=== PATIENT | female | born 1945 | race Caucasian/White ===

== ENCOUNTER → 2016-06-16 | Day surgery (SDC) | payer MEDICARE, BC ==
[~2016-06-16] VITALS: Ht 175.3 cm; Wt 49.9 kg
[~2016-06-16] MED LIST: ALPRAZOLAM0.5 MG PO; COUMADIN 1MG TAB1 MG PO; IMDUR ER TAB 3030 MG PO; LANOXIN TAB0.125 MG PO; LOSARTAN POTASS50 MG PO; PLAVIX 75 MG TA75 MG PO; PROVENTIL HFA 61 INH INH; SIMVASTATIN20 MG PO; SOTALOL120 MG PO; TIROSINT100 MCG PO; TORSEMIDE20 MG PO; TRAMADOL HCL50 MG PO; VENTOLIN/PROVE0.5 ML INH; ZYLOPRIM 100 M100 MG PO
== END | disposition home or self-care (01) ==
LOC: OR 06:48
PROVIDERS: Internal Medicine Gastroenterology
PROC: 0DB68ZX Excision of Stomach, Via Natural or Artificial Opening Endoscopic, Diagnostic (ICD-10-PCS; principal; 2016-06-16 08:45)
PROC: 0DBH8ZZ Excision of Cecum, Via Natural or Artificial Opening Endoscopic (ICD-10-PCS; 2016-06-16 08:45)
DX: D12.0 Benign neoplasm of cecum (principal); K64.0 First degree hemorrhoids; K29.70 Gastritis, unspecified, without bleeding; K44.9 Diaphragmatic hernia without obstruction or gangrene; I11.0 Hypertensive heart disease with heart failure; I50.9 Heart failure, unspecified; I25.2 Old myocardial infarction; I25.10 Atherosclerotic heart disease of native coronary artery without angina pectoris; J40 Bronchitis, not specified as acute or chronic; G47.30 Sleep apnea, unspecified; M19.90 Unspecified osteoarthritis, unspecified site; M54.9 Dorsalgia, unspecified; Z88.0 Allergy status to penicillin; Z90.710 Acquired absence of both cervix and uterus; Z90.49 Acquired absence of other specified parts of digestive tract; Z95.810 Presence of automatic (implantable) cardiac defibrillator; Z98.890 Other specified postprocedural states
CPT/HCPCS: J2250; J7030

== ENCOUNTER → 2020-06-30 | Outpatient (CLI) | payer MEDICARE, BC ==
[~2020-06-30] MED LIST changes: +ALBUTEROL2.5 MG/3 M INH; +AMIODARONE HCL200 MG PO; +ASPIRIN81 MG PO; +COLACE 100MG C100 MG PO; +COUMADIN2 MG PO; +COZAAR50 MG PO; +DIGOX125 MCG PO; +DOXYCYCLINE HY100 MG PO; +ENTRESTO 24 MG1 EACH PO; +ESCITALOPRAM OX10 MG PO; +FLONASE 0.05% N16 GM; +JANTOVEN2 MG PO; +JANTOVEN4 MG PO; -LANOXIN TAB0.125 MG PO; +LEVAQUIN500 MG PO; +LEVAQUIN750 MG PO; +LOPRESSOR 25 MG25 MG PO; +MEDROL DOSEPAK 24 MG PO; +MEGA BIOTIN10000 MCG PO; +NAC600 MG PO; +POLYETHYLENE GL17 GM PO; +PREDNISONE10 MG PO; +PREDNISONE20 MG PO; +SYMBICORT 16010.2 GM INH; +SYNTHROID100 MCG PO; -TIROSINT100 MCG PO; +TYLENOL W/CODEIN1 E1 PO; -VENTOLIN/PROVE0.5 ML INH; +VIBRAMYCIN100 MG PO; +XANAX1 MG PO
== END ==
LOC: KOH-I 08:04
DX: R14.0 Abdominal distension (gaseous) (principal); R10.9 Unspecified abdominal pain; R60.1 Generalized edema
CPT/HCPCS: 74176

== ENCOUNTER → 2020-07-08 | Outpatient (CLI) | payer MEDICARE, BC ==
[2020-07-08 12:14] LABS: HEMOGLOBIN 12.5 gm/dl (12.3-15.3); RED BLOOD COUNT 3.83 M/UL (4.00-5.10); WHITE BLOOD COUNT 4.4 K/UL (4.5-11.0)
[2020-07-09 11:11] LABS: CREATININE, URINE 13.6 mg/dL (Not Estab.)
== END ==
LOC: LAB 11:11
PROVIDERS: Family Medicine
DX: E11.9 Type 2 diabetes mellitus without complications (principal); E03.9 Hypothyroidism, unspecified; E78.2 Mixed hyperlipidemia; M10.9 Gout, unspecified; D64.9 Anemia, unspecified
CPT/HCPCS: 36415; 80053; 80061; 82043; 82570; 82728; 83540; 83550; 84439; 84443; 84550; 85027; 85045

== ENCOUNTER → 2020-07-20 | Outpatient (CLI) | payer MEDICARE, BC ==
[2020-07-21 09:14] LABS: HBSAG SCREEN Negative (Negative); HEP A AB, IGM Negative (Negative); HEP B CORE AB, IGM Negative (Negative); HEP C VIRUS AB 0.1 (0.0-0.9)
[2020-07-21 11:14] LABS: ALPHA-1-ANTITRYPSIN, SERUM 136 mg/dL (101-187)
[2020-07-21 13:14] LABS: MITOCHONDRIAL (M2) ANTIBODY 35.7 Units (0.0-20.0); NUCLEAR DOT PATTERN >1:1280 (.)
== END ==
LOC: LAB 13:09
PROVIDERS: Internal Medicine Gastroenterology
DX: R94.5 Abnormal results of liver function studies (principal); K74.60 Unspecified cirrhosis of liver
CPT/HCPCS: 36415; 80048; 80074; 80076; 82103; 82728; 83540; 83550; 86038

== ENCOUNTER → 2020-07-24 | Outpatient (CLI) | payer MEDICARE, BC | LOC: OPSV 10:00 | DX: K74.60 Unspecified cirrhosis of liver (principal); R18.8 Other ascites; Z79.01 Long term (current) use of anticoagulants; Z79.82 Long term (current) use of aspirin; Z79.899 Other long term (current) drug therapy; Z20.822 Contact with and (suspected) exposure to COVID-19 | CPT/HCPCS: G0463; U0003 ==

== ENCOUNTER → 2020-07-28 | Day surgery (SDC) | payer MEDICARE, BC | END | disposition home or self-care (01) | LOC: OR 06:37 | DX: K31.819 Angiodysplasia of stomach and duodenum without bleeding (principal); K44.9 Diaphragmatic hernia without obstruction or gangrene; K22.4 Dyskinesia of esophagus; K74.60 Unspecified cirrhosis of liver; R18.8 Other ascites; I50.22 Chronic systolic (congestive) heart failure; I25.10 Atherosclerotic heart disease of native coronary artery without angina pectoris; I48.91 Unspecified atrial fibrillation; K21.9 Gastro-esophageal reflux disease without esophagitis; E03.9 Hypothyroidism, unspecified; F17.210 Nicotine dependence, cigarettes, uncomplicated; Z95.1 Presence of aortocoronary bypass graft; Z88.0 Allergy status to penicillin; Z88.1 Allergy status to other antibiotic agents; Z79.82 Long term (current) use of aspirin; Z79.01 Long term (current) use of anticoagulants; Z79.899 Other long term (current) drug therapy | CPT/HCPCS: J2001; J2704; J7030 ==

== ENCOUNTER → 2020-08-10 | Outpatient (CLI) | payer MEDICARE, BC ==
[2020-08-10 10:44] LABS: HEMOGLOBIN 12.8 gm/dl (12.3-15.3); RED BLOOD COUNT 3.85 M/UL (4.00-5.10); WHITE BLOOD COUNT 3.7 K/UL (4.5-11.0)
[2020-08-11 11:14] LABS: CREATININE, URINE 13.5 mg/dL (Not Estab.); HBSAG SCREEN Negative (Negative); HEP A AB, IGM Negative (Negative); HEP B CORE AB, IGM Negative (Negative); HEP C VIRUS AB <0.1 (0.0-0.9)
== END ==
LOC: LAB 09:15
PROVIDERS: Family Medicine
DX: E87.6 Hypokalemia (principal); K74.60 Unspecified cirrhosis of liver; E11.9 Type 2 diabetes mellitus without complications; E03.9 Hypothyroidism, unspecified; E78.2 Mixed hyperlipidemia; M10.9 Gout, unspecified; D64.9 Anemia, unspecified
CPT/HCPCS: 36415; 80053; 80061; 80074; 82043; 82570; 82728; 83540; 83550; 84439; 84443; 84550; 85027; 85045

== ENCOUNTER → 2020-09-01 | Outpatient (CLI) | payer MEDICARE, BC ==
[2020-09-01 09:52] LABS: HEMOGLOBIN 12.9 gm/dl (12.3-15.3); RED BLOOD COUNT 3.89 M/UL (4.00-5.10); WHITE BLOOD COUNT 5.3 K/UL (4.5-11.0)
== END ==
LOC: LAB 08:54
PROVIDERS: Internal Medicine Nephrology
DX: N18.32 Chronic kidney disease, stage 3b (principal); E87.3 Alkalosis; E87.6 Hypokalemia
CPT/HCPCS: 36415; 80053; 82043; 82570; 82803; 83735; 84156; 85027

== ENCOUNTER → 2020-09-30 | Outpatient (CLI) | payer MEDICARE, BC | LOC: LAB 10:47 | PROVIDERS: Internal Medicine Nephrology | DX: N18.32 Chronic kidney disease, stage 3b (principal); R06.02 Shortness of breath | CPT/HCPCS: 36415; 80053; 83880 ==

== ENCOUNTER → 2020-10-15 | Outpatient (CLI) | payer MEDICARE, BC ==
[2020-10-16 07:11] LABS: IMMUNOGLOBULIN G, QN, SERUM 1772 mg/dL (586-1602)
[2020-10-16 13:11] LABS: LIVER-KIDNEY MICROSOMAL AB <1.0 Units (0.0-20.0)
[2020-10-16 16:12] LABS: ACTIN (SMOOTH MUSCLE) ANTIBODY 18 Units (0-19)
== END ==
LOC: LAB 12:38
PROVIDERS: Internal Medicine Gastroenterology
DX: R74.8 Abnormal levels of other serum enzymes (principal)
CPT/HCPCS: 36415; 82784; 83516; 86376

== ENCOUNTER → 2020-10-19 | Outpatient (CLI) | payer MEDICARE, BC | LOC: LAB 10:07 | PROVIDERS: Internal Medicine Nephrology | DX: N18.32 Chronic kidney disease, stage 3b (principal) | CPT/HCPCS: 36415; 80053 ==

== ENCOUNTER → 2020-10-19 | Outpatient (CLI) | payer MEDICARE, BC | LOC: HEART 5 09:00 | DX: R06.02 Shortness of breath (principal); Z79.899 Other long term (current) drug therapy; F17.210 Nicotine dependence, cigarettes, uncomplicated; R94.2 Abnormal results of pulmonary function studies | CPT/HCPCS: 36415; 80053; 94060; 94729 ==

== ENCOUNTER → 2020-10-30 | Outpatient (CLI) | payer MEDICARE, BC | LOC: LAB 10:24 | PROVIDERS: Internal Medicine Nephrology | DX: N18.32 Chronic kidney disease, stage 3b (principal) | CPT/HCPCS: 36415; 80048 ==

== ENCOUNTER → 2020-12-07 | Outpatient (CLI) | payer MEDICARE, BC | LOC: LAB 09:02 | PROVIDERS: Internal Medicine Nephrology | DX: N18.32 Chronic kidney disease, stage 3b (principal) | CPT/HCPCS: 36415; 80048 ==

== ENCOUNTER → 2020-12-11 | Outpatient (CLI) | payer MEDICARE, BC | LOC: KOH-I 10:00 | DX: F17.210 Nicotine dependence, cigarettes, uncomplicated (principal) | CPT/HCPCS: 71271 ==

== ENCOUNTER → 2020-12-21 | Outpatient (CLI) | payer MEDICARE, BC | LOC: LAB 09:05 | DX: E03.9 Hypothyroidism, unspecified (principal) | CPT/HCPCS: 36415; 84439; 84443 ==

== ENCOUNTER → 2020-12-28 | Outpatient (CLI) | payer MEDICARE, BC | LOC: LAB 08:21 | PROVIDERS: Internal Medicine Nephrology | DX: N18.32 Chronic kidney disease, stage 3b (principal) | CPT/HCPCS: 36415; 80048 ==

== ENCOUNTER → 2021-01-07 | Outpatient (CLI) | payer MEDICARE, BC | LOC: EXRD 08:54 | DX: K74.60 Unspecified cirrhosis of liver (principal) | CPT/HCPCS: 76705 ==

== ENCOUNTER → 2021-01-12 | Outpatient (CLI) | payer MEDICARE, BC | LOC: LAB 09:52 | PROVIDERS: Family Medicine | DX: M10.9 Gout, unspecified (principal); I12.9 Hypertensive chronic kidney disease with stage 1 through stage 4 chronic kidney disease, or unspecified chronic kidney disease; N18.32 Chronic kidney disease, stage 3b; E03.9 Hypothyroidism, unspecified | CPT/HCPCS: 36415; 80053; 83735; 84439; 84443; 84550 ==

== ENCOUNTER → 2021-02-03 | Outpatient (CLI) | payer MEDICARE, BC | LOC: OPSV 10:00 | DX: R18.8 Other ascites (principal); K74.60 Unspecified cirrhosis of liver | CPT/HCPCS: G0463 ==

== ENCOUNTER → 2021-02-22 | Outpatient (CLI) | payer MEDICARE, BC | LOC: LAB 13:21 | PROVIDERS: Internal Medicine Nephrology | DX: N18.32 Chronic kidney disease, stage 3b (principal) | CPT/HCPCS: 36415; 80053 ==

== ENCOUNTER → 2021-03-09 | Outpatient (CLI) | payer MEDICARE, BC | LOC: EXRD 11:19 | DX: Z13.820 Encounter for screening for osteoporosis (principal); M81.0 Age-related osteoporosis without current pathological fracture | CPT/HCPCS: 77080 ==

== ENCOUNTER → 2021-03-16 | Outpatient (CLI) | payer MEDICARE, BC ==
[2021-03-16 12:33] LABS: HEMOGLOBIN 14.3 gm/dl (12.3-15.3); RED BLOOD COUNT 4.27 M/UL (4.00-5.10)
[2021-03-17 09:13] LABS: CREATININE, URINE 46.6 mg/dL (Not Estab.)
== END ==
LOC: LAB 11:06
PROVIDERS: Family Medicine
DX: E11.9 Type 2 diabetes mellitus without complications (principal); E03.9 Hypothyroidism, unspecified; I10 Essential (primary) hypertension; E78.2 Mixed hyperlipidemia; M10.9 Gout, unspecified
CPT/HCPCS: 36415; 80053; 80061; 82043; 82570; 83036; 83735; 84439; 84443; 84550; 85027

== ENCOUNTER → 2021-04-12 | Outpatient (CLI) | payer MEDICARE, BC | LOC: LAB 10:40 | PROVIDERS: Internal Medicine Nephrology | DX: N18.32 Chronic kidney disease, stage 3b (principal) | CPT/HCPCS: 36415; 80053 ==

== ENCOUNTER → 2021-05-13 | Outpatient (CLI) | payer MEDICARE, BC | LOC: LAB 07:58 | PROVIDERS: Internal Medicine Nephrology | DX: I50.22 Chronic systolic (congestive) heart failure (principal) | CPT/HCPCS: 36415; 80048 ==

== ENCOUNTER → 2021-05-25 | Outpatient (CLI) | payer MEDICARE, BC ==
[~2021-05-25] VITALS: Ht 152.4 cm; Wt 46.3 kg
== END ==
LOC: OPSV 14:53
DX: M81.0 Age-related osteoporosis without current pathological fracture (principal)
CPT/HCPCS: 96372

== ENCOUNTER 2021-07-24 16:33 | Inpatient (IN) | payer MEDICARE, BC ==
[~2021-07-24] VITALS: Ht 152.4 cm; Wt 47.2 kg
[2021-07-24 17:33] LABS: HEMOGLOBIN 13.5 gm/dl (12.3-15.3); RED BLOOD COUNT 4.04 M/UL (4.00-5.10); WHITE BLOOD COUNT 5.6 K/UL (4.5-11.0)
[2021-07-24] MEDS ORDERED: IMODIUM CAP 2 MG2 MG PO (18:03)
[2021-07-24] MEDS ORDERED: ZOFRAN ODT 4 MG4 MG SL (18:03)
[2021-07-24] MEDS ORDERED: LEVOTHYROXINE75 MC1 PO (21:22)
[2021-07-24] MEDS ORDERED: PACERONE200 MG PO (21:24)
[2021-07-24] MEDS ORDERED: FOSAMAX70 MG PO (21:25)
[2021-07-24] MEDS ORDERED: ZESTRIL2.5 MG PO (21:27)
[2021-07-24] MEDS ORDERED: ARIMIDEX 1 MG TA1 MG PO (21:28)
[2021-07-24] MEDS ORDERED: DEMADEX 20 MG T20 MG PO (21:29)
[2021-07-25 02:23] LABS: HEMOGLOBIN 11.8 gm/dl (12.3-15.3); WHITE BLOOD COUNT 6.1 K/UL (4.5-11.0)
[2021-07-25 02:37] LABS: RED BLOOD COUNT 3.63 M/UL (4.00-5.10)
--- NOTE | 2021-07-25 13:29 | NUR ---
DR. CARDENAS NOTIFIED OF PATIENTS CRITICAL PT RESULT. NO NEW ORDERS NOTED.
[2021-07-25] MEDS ORDERED: ANASTROZOLE1 MG PO (14:12)
[2021-07-25] MEDS ORDERED: ALLOPURINOL100 MG PO (14:12)
[2021-07-25] MEDS ORDERED: LEVOFLOXACIN500 MG PO (18:07)
[2021-07-25] MEDS ORDERED: METRONIDAZOLE500 MG PO (18:07)
[2021-07-25] MEDS ORDERED: IPRAT-ALBUT 0.5-3 ML NEB (18:07)
== END 2021-07-25 19:26 | disposition home or self-care (01) | DRG 683 ==
LOC: ER1 16:33 → CDU 18:22 → M/S 18:22
PROVIDERS: Emergency Medicine; ADMIT Internal Medicine
DX: N17.9 Acute kidney failure, unspecified (principal); E46 Unspecified protein-calorie malnutrition; E87.1 Hypo-osmolality and hyponatremia; A08.4 Viral intestinal infection, unspecified; E86.0 Dehydration; J44.9 Chronic obstructive pulmonary disease, unspecified; I25.10 Atherosclerotic heart disease of native coronary artery without angina pectoris; E11.22 Type 2 diabetes mellitus with diabetic chronic kidney disease; I25.5 Ischemic cardiomyopathy; I12.9 Hypertensive chronic kidney disease with stage 1 through stage 4 chronic kidney disease, or unspecified chronic kidney disease; R19.7 Diarrhea, unspecified; F17.200 Nicotine dependence, unspecified, uncomplicated; K74.60 Unspecified cirrhosis of liver; E03.9 Hypothyroidism, unspecified; R79.1 Abnormal coagulation profile; M40.209 Unspecified kyphosis, site unspecified; N18.9 Chronic kidney disease, unspecified; Z20.822 Contact with and (suspected) exposure to COVID-19; E87.6 Hypokalemia; Z83.3 Family history of diabetes mellitus; Z82.49 Family history of ischemic heart disease and other diseases of the circulatory system; Z79.899 Other long term (current) drug therapy; I25.2 Old myocardial infarction; Z90.710 Acquired absence of both cervix and uterus; Z98.41 Cataract extraction status, right eye; Z98.42 Cataract extraction status, left eye; Z98.890 Other specified postprocedural states; Z95.810 Presence of automatic (implantable) cardiac defibrillator; Z95.0 Presence of cardiac pacemaker; Z92.29 Personal history of other drug therapy; Z92.21 Personal history of antineoplastic chemotherapy; Z88.0 Allergy status to penicillin; Z88.8 Allergy status to other drugs, medicaments and biological substances; Z71.6 Tobacco abuse counseling; Z68.20 Body mass index [BMI] 20.0-20.9, adult; Z88.1 Allergy status to other antibiotic agents
CPT/HCPCS: 0240U; 36415; 71045; 80053; 82962; 83036; 83605; 83631; 83690; 83735; 84100; 84132; 85025; 85610; 86140; 87045; 87046; 87177; 87209; 87449; 94664; 94760; 96374; 99285; C9113; G0378; J1956; J2405; J3480; J7030

== ENCOUNTER → 2021-09-24 | Outpatient (CLI) | payer MEDICARE, BC ==
[~2021-09-24] MED LIST changes: +ALLOPURINOL100 MG PO; +ANASTROZOLE1 MG PO; +ARIMIDEX 1 MG TA1 MG PO; +DEMADEX 20 MG T20 MG PO; +FOSAMAX70 MG PO; +IMODIUM CAP 2 MG2 MG PO; +IPRAT-ALBUT 0.5-3 ML NEB; +LEVOFLOXACIN500 MG PO; +LEVOTHYROXINE75 MC1 PO; +METRONIDAZOLE500 MG PO; +PACERONE200 MG PO; +ZESTRIL2.5 MG PO; +ZOFRAN ODT 4 MG4 MG SL
== END ==
LOC: US 09:30
DX: K74.60 Unspecified cirrhosis of liver (principal)
CPT/HCPCS: 76705

== ENCOUNTER → 2021-11-01 | Outpatient (CLI) | payer MEDICARE, BC | LOC: NM 12:15 → US 11-15 13:30 → NM 11-15 13:30 | DX: R10.11 Right upper quadrant pain (principal) | CPT/HCPCS: 78227; A9537 ==

== ENCOUNTER → 2021-11-25 | Outpatient (CLI) | payer MEDICARE, BC | LOC: OPSV 14:28 | DX: M81.0 Age-related osteoporosis without current pathological fracture (principal) | CPT/HCPCS: 96372 ==